=== PATIENT | female | born 1980 ===

== ENCOUNTER 2024-11-22 08:24 | Outpatient (CLI) | payer OTHER, SELFPAY | END 2024-11-22 08:25 | disposition home or self-care (01) | PROVIDERS: PCP Emergency Medicine; Visit Provider Emergency Medicine | DX: R19.00 Intra-abdominal and pelvic swelling, mass and lump, unspecified site (principal) | CPT/HCPCS: 80053; 86140; 87086 ==

== ENCOUNTER 2024-11-30 14:10 | Outpatient (CLI) | payer OTHER, SELFPAY ==
--- NOTE | 2024-11-30 14:30 | CRLHL7_ITS ---
For Patients: As a result of the Century Cures Act, medical imaging exams and procedure reports are released immediately into your electronic medical record. You may view this report before your referring provider. If you have questions, please contact your health care provider. INDICATION: Abdominal swelling. Vascular structure in the retroperitoneum. COMPARISON: CT scan of the abdomen and pelvis dated 03 October 2022. TECHNIQUE: Abdominal MRI with T1 in- and out of phase, T2, diffusion weighted, and progressively delayed post-contrast images. Intravenous gadolinium administered. FINDINGS: No fatty infiltration of the liver. No focal abnormalities identified in the visualized portions of the liver, pancreas, adrenal glands, and kidneys. No hydronephrosis. A few subcapsular cysts in spleen with the largest located in the posterior aspect of the spleen measuring 1.7 cm. 1.2 x 0.7 cm probable venous varix in the aortocaval region of the retroperitoneum at the level of the kidneys best seen on image 21 of series 8 and image 39 of series 15. Impression : 1. Small probable venous varix in the aortocaval region of the retroperitoneum. Dictated by Haroon Guadalupe MD @ 12/04/2024 4:46:44 AM (Electronically Signed)
== END 2024-11-30 14:11 | disposition home or self-care (01) ==
LOC: MRI 14:12
PROVIDERS: PCP Emergency Medicine; Visit Provider Emergency Medicine
DX: R19.00 Intra-abdominal and pelvic swelling, mass and lump, unspecified site (principal); K65.9 Peritonitis, unspecified
CPT/HCPCS: 74183; A9575

== ENCOUNTER 2025-01-08 16:18 | Outpatient (CLI) | payer OTHER, SELFPAY | END 2025-01-08 16:19 | disposition home or self-care (01) | PROVIDERS: PCP Emergency Medicine; Visit Provider Emergency Medicine | DX: E83.52 Hypercalcemia (principal); R10.13 Epigastric pain | CPT/HCPCS: 80048; 82306; 83690 ==

== ENCOUNTER 2025-01-18 08:30 | Outpatient (CLI) | payer OTHER, SELFPAY | END 2025-01-18 08:31 | disposition home or self-care (01) | LOC: NFLDREF 01-23 02:16 | PROVIDERS: PCP Emergency Medicine; Referring Provider Emergency Medicine; Visit Provider Emergency Medicine | DX: E83.52 Hypercalcemia (principal) | CPT/HCPCS: 83735; 83970; 84100 ==